=== PATIENT | female | born 1995 | race Caucasian/White ===

== ENCOUNTER 2018-03-26 12:42 | Emergency (ER) | payer BC ==
[2018-03-26 12:47] VITALS: BP 107/66; PULSE 73; TEMP 98.4
--- NOTE | 2018-03-26 13:12 | PDOC ---
History of Present Illness - General Chief Complaint: Injury Stated Complaint: HEAD INJURY, LEFT KNEE PAIN Time Seen by Provider: 03/26/18 13:02 - History of Present Illness Initial Comments: 03/26/18 16:23 Chief complaint: Headache History of present illness: Although the patient suffers from migraines, she has a headache that she describes as different than her usual. It began approximately one week ago and is intermittent and generalized, and her usual migraines are one- sided. There is been no nausea or photophobia. The pain is relieved with ibuprofen. She is concerned about a head injury she sustained approximately 3 weeks ago, at which time she fell backwards and struck her occiput sustaining a small laceration. However, she had no symptoms in the week to 10 days following the injury. She was seen at that time in the urgent care center and no imaging was done. Review of systems: Denies visual or focal neurologic symptoms, chest pain, shortness of breath, abdominal pain, nausea, vomiting, diarrhea, URI symptoms, sore throat, cough. Remainder systems reviewed and found to be negative Past medical history: Chiari malformation diagnosed at age 14 when a CAT scan was done for head injury. She was seeing a neurologist until approximately 5 years ago. No follow-up since then. Continues to have occasional migraines which did not require medication. 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 Denies tobacco or alcohol. Smokes marijuana occasionally, most recently 2 days ago. Fully active and ambulatory Family history: Reviewed and noncontributory including cardiac, pulmonary, neurologic, GI disease. Physical exam: Patient is alert and oriented well-developed well-nourished no acute distress cheerful and cooperative. She does not appear to be in any discomfort Afebrile, vital signs normal Head atraumatic. There is no evidence of contusion, laceration, or hematoma. PERRLA 4 mm, fundi well-visualized with sharp disc margins, good central venous pulsations, and no hemorrhages or exudates EOMs full without diplopia. Visual moody intact to confrontation Neck supple without bruit mass or nodes. No point tenderness or deformity. Chest clear. CV regular without murmur rub or gallop Abdomen benign Neurological C2 to 12 intact. Strength full and symmetric. No focal sensory or motor deficits. Gait stable and unimpaired. Assessment of the cerebellum shows no deficits to finger-nose and heel dominguez Impression: No sign of subdural hematoma or other intracranial trauma. The event was several weeks ago and followed by an asymptomatic period of 7-10 days. Most likely this is an atypical migraine. The other possibility is a worsening of her GERD herniation, although there are no other focal sensory or motor deficits. Plan: Analgesics as necessary for the headache. Muscle relaxants. Neurology follow-up with repeat imaging to compare with prior examination. Patient strongly encouraged to obtain the results of her prior imaging tests and to consult her neurologist within 1 week, or return to ER if symptoms seem to be worsening or new symptoms develop. She is in no pain or other distress upon discharge, fully ambulatory, cheerful and animated to follow-up as directed. Past History - Past Medical History Allergies/Adverse Reactions: Allergies Allergy/AdvReac Type Severity Reaction Status Date / Time amoxicillin Allergy Verified 03/26/18 12:43 bee venom protein (honey bee) Allergy Verified 03/26/18 12:43 Penicillins Allergy Verified 03/26/18 12:43 Home Medications: Ambulatory Orders Cyclobenzaprine HCl [Flexeril] 10 mg PO TID #15 tablet 03/26/18 Diclofenac Sodium 75 mg PO BID PRN #20 tablet. 03/26/18 COPD: No Other medical history: MIGRAINE HEADACHES, CHIARI MALFORMATION - Suicide/Smoking/Psychosocial Hx Smoking History: Never smoked Have you smoked in the past 12 months: No Information on smoking cessation initiated: No Hx Alcohol Use: No *Physical Exam - Vital Signs Last Vital Signs Temp Pulse Resp BP Pulse Ox 98.4 F 73 18 107/66 100 03/26/18 12:42 03/26/18 12:42 03/26/18 12:42 03/26/18 12:42 03/26/18 12:42 Moderate Sedation - Procedure Monitoring Vital Signs: Procedure Monitoring Vital Signs Temperature 98.4 F 03/26/18 12:42 Pulse Rate 73 03/26/18 12:42 Respiratory Rate 18 03/26/18 12:42 Blood Pressure 107/66 03/26/18 12:42 O2 Sat by Pulse Oximetry (%) 100 03/26/18 12:42 *DC/Admit/Observation/Transfer Diagnosis at time of Disposition: Headache Qualifiers: Headache type: unspecified Headache chronicity pattern: episodic headache Intractability: not intractable Qualified Code(s): R51 - Headache - Discharge Dispostion Disposition: HOME Condition at time of disposition: Improved Decision to Admit order: No - Prescriptions Prescriptions: Cyclobenzaprine HCl [Flexeril] 10 mg PO TID #15 tablet Diclofenac Sodium 75 mg PO BID PRN #20 tablet.dr BLAKE Reason: Headache - Referrals - Patient Instructions Printed Discharge Instructions: DI for Migraine Additional Instructions: Obtain most recent brain scans (CT or MRI ) and see neurologist for further evaluation and treatment of your Chiari malformation Pain medication and muscle relaxants as needed Return to ER if symptoms worsen, otherwise follow-up with urologist as directed. - Post Discharge Activity Forms/Work/School Notes: Back to Work
[2018-03-26 13:38] LABS: URINE APPEARANCE Clear; URINE BILIRUBIN Negative (NEGATIVE); URINE COLOR Amber; URINE GLUCOSE (UA) Negative (NEGATIVE); URINE KETONE Negative (NEGATIVE); URINE LEUK ESTERASE Negative (NEGATIVE); URINE NITRITE Negative (NEGATIVE); URINE PROTEIN Negative (NEGATIVE); URINE UROBILINOGEN 0.2 (0.2-1.0)
[2018-03-26 13:44] LABS: HCG,QUALITATIVE URINE Negative
[2018-03-26 13:46] LABS: EPI CELLS 1+ /HPF; URINE RBC 40-60 /hpf (0-3)
[2018-03-26] MEDS ORDERED: DICLOFENAC SODIUM 75 MG TABLET.DR PO ONE (14:03)
== END 2018-03-26 14:25 | disposition home or self-care (01) ==
LOC: FER 12:42
DX: R51 Headache (principal); G93.5 Compression of brain
CPT/HCPCS: 81003; 81015; 84703; 99283-25